=== PATIENT | female | born 1940 | race Caucasian/White ===

== ENCOUNTER → 2016-10-12 | Outpatient (CLI) | payer OTHER | LOC: BMCIMAGING 08:16 | DX: Z12.31 Encounter for screening mammogram for malignant neoplasm of breast (principal) | CPT/HCPCS: G0202 ==

== ENCOUNTER 2017-01-03 10:24 | Inpatient (IN) | payer OTHER ==
--- NOTE | 2017-01-03 10:37 | EDPHY ---
H & P Time Seen by Provider: 01/03/17 10:31 HPI/ROS: CHIEF COMPLAINT: Right ankle injury HISTORY OF PRESENT ILLNESS: Was hiking and stepped wrong injuring her right ankle. Pain only in the ankle and foot without weakness or numbness distally. No other injury. Pain mild to moderate now. Happened around quarter to 9 this morning. Did not sustain head injury or loss of consciousness. She says she can move her toes. REVIEW OF SYSTEMS: Eye: no change in vision ENT: no sore throat Cardiac: no chest pain or syncope Pulmonary: no cough or SOB Abdomen: no vomiting, diarrhea, abdominal pain Musculoskeletal: Right ankle, otherwise negative. Skin: Skin tenting medially but no laceration. There is a medial ankle abrasion. Neuro: no headache Constitutional: no fever : no urinary symptoms She had breakfast cereal and blueberries at 730 but nothing since. A comprehensive 10 point review of systems is otherwise negative aside from elements mentioned in the history of present illness. PAST MEDICAL HISTORY: Diabetes type 1, hypothyroid Social history: Primary care is Greta Moscoso of [facility] General Appearance: Alert and conversant, cooperative. Eyes: No scleral icterus. ENT, Mouth: Normal mucous membranes. Respiratory: Normal respiratory effort, breath sounds equal, lungs are clear to auscultation. Cardiovascular: Regular rate and rhythm. Gastrointestinal: Abdomen is soft and non tender. Neurological: Alert and oriented x3. Normally conversant. Skin: Warm and dry, no rashes. Musculoskeletal: Right ankle swelling and deformity with some medial tenting of the skin but no laceration. She has intact sensation to light touch and can move her toes and normal dorsalis pedis pulse on that foot. No spinal tenderness. Psychiatric: Not agitated. Emergency Department course/MDM: Geno Corley 1133. Discussed with Barney 125Herb recommends admit then OR tonight. Temperature 37.0degrees at 11:09 a.m.. Smoking Status: Never smoked Constitutional: Initial Vital Signs Heart Rate 59 L 01/03/17 10:30 Respiratory Rate 18 01/03/17 10:30 Blood Pressure 114/59 L 01/03/17 10:30 O2 Sat (%) 98 01/03/17 10:30 O2 Delivery Mode [Procedural Non-Rebreather Mask 1st] O2 Delivery Mode [.Immediate Non-Rebreather Mask Pre-Procedure] O2 Delivery Mode Non-Rebreather Mask O2 (L/minute) [Procedural 1st] 15 O2 (L/minute) [.Immediate Pre- 15 Procedure] O2 (L/minute) 15 Allergies/Adverse Reactions: No Known Allergies Allergy (Unverified 01/03/17 12:36) Home Medications: Medication Instructions Recorded Aspirin [Aspirin 81mg (*)] 81 mg PO HS 01/03/17 Cholecalciferol Vit D3 [Vitamin D3 1,000 units PO DAILY 01/03/17 (*)] Herbals/Supplements -Info Only 1 ea PO DAILY 01/03/17 Insulin Glargine [Lantus 100 15 - 16 units SC DAILY 01/03/17 UNITS/ML (*)] Insulin Lispro [Humalog] 2 - 5 unit SQ DAILY 01/03/17 Insulin Lispro [Humalog] 6 - 8 unit SQ BID@12,18 01/03/17 Levothyroxine [Synthroid 150 mcg 150 mcg PO DAILY06 01/03/17 (*)] Lisinopril [Zestril 20 mg (*)] 20 mg PO DAILY 01/03/17 Medical Decision Making - Diagnostics Imaging Results: Imaging Impressions Ankle X-Ray 01/03/17 10:29 Impression: Acute trimalleolar fracture dislocation. Ankle X-Ray 01/03/17 11:02 Impression: Partial reduction of trimalleolar fracture dislocation. Procedures: Procedure: Procedural sedation. Indication: Reduction of the right ankle fracture dislocation A pre-sedation evaluation was completed on the patient at 10:30 a.m. including medical history, allergies and medications, last oral intake, previous experience with sedation, airway assessment, physical examination. Patient is an appropriate candidate for procedural sedation. The risks, benefits, and alternatives of the sedation were discussed with the patient including but not limited to need for airway intervention, cardiovascular complications, ; and consent obtained. The patient is ASA class 2E.Mallampati and 3/3/2 airway assessments were completed. A time out was completed. The patient was sedated with propofol. The patient was monitored with continuous pulse oximetry , boiler tester and end tidal CO2. There were no complications and no significant hypoxemia. I remained at the bedside for the sedation. The total time I spent in the procedural sedation was 11 minutes. At 1250 the patient is alert, awake, and back to neurological and respiratory baseline. Procedure: Dislocation reduction. Indication: Dislocation of the right ankle joint. Risks, benefits, alternatives discussed with the patient including but not limited to fracture, nerve or blood vessel injury, and consent obtained. A timeout was completed. The right ankle was reduced in the usual fashion without complications. Post reduction the patient's neurovascular exam is normal. Post reduction x-ray better alignment but not anatomic. The procedure was performed by myself. Procedure: Splint placement. A three-way long leg posterior Ortho Glass splint was applied. After application of the splint I returned and re-examined the patient. The splint was adequately immobilizing the joint and distal to the splint the patient's circulation and sensation was intact. Consult/Admit Bed Type: [facility] to consult for hospitalist service - Data Points Medications Given: Discontinued Medications Propofol (Diprivan) 60 mg IVP EDNOW ONE Stop: 01/03/17 11:02 Last Admin: 01/03/17 10:52 Dose: 60 mg Departure - Departure Disposition: [facility] Inpatient Acute Clinical Impression: Trimalleolar fracture of ankle, closed Qualifiers: Encounter type: initial encounter Laterality: right Qualified Code(s): S82.851A - Displaced trimalleolar fracture of right lower leg, initial encounter for closed fracture Condition: Good
[2017-01-03] MEDS ORDERED: PROPOFOL 200 MG/20 ML VIAL ONE ×2 (10:45→17:07)
[2017-01-03] MEDS ORDERED: fentaNYL 100 MCG/2 ML INJ ONE (10:45)
[2017-01-03] MEDS ORDERED: PROPOFOL 200 MG/20 ML VIAL IVP ONE (11:01)
[2017-01-03] MEDS ORDERED: HYDROmorphONE/DILAUDID 1 MG/ML SYR IVP PRN ×2 (14:43→18:11)
[2017-01-03] MEDS ORDERED: ONDANSETRON 4 MG/2 ML VIAL IVP PRN (14:43)
[2017-01-03] MEDS ORDERED: D50W 25 GM/50 ML SYR IVP PRN (14:44)
[2017-01-03] MEDS ORDERED: D5W NS 1,000 ML IV SCH (14:45)
--- NOTE | 2017-01-03 15:19 | CPEKG ---
Heart Rate: 62 RR Interval: 968 P-R Interval: 192 QRSD Interval: 76 QT Interval: 476 QTC Interval: 484 P Derby: 21 QRS Derby: 66 T Wave Derby: 68 EKG Severity - NORMAL ECG - EKG Impression: SINUS RHYTHM Electronically Signed By: John Cardona 03-Jan-2017 15:37:39
[2017-01-03 15:43] LABS: ANION GAP 9 mEq/L (8-16); CALCIUM 8.5 mg/dL (8.5-10.4); CARBON DIOXIDE 21 mEq/l (22-31); CHLORIDE 110 mEq/L (97-110); CREATININE 0.9 mg/dL (0.6-1.0); GLOMERULAR FILTRATION RATE > 60; GLUCOSE 84 mg/dL (70-100); POTASSIUM 4.7 mEq/L (3.5-5.2); SODIUM 140 mEq/L (134-144)
[2017-01-03] MEDS ORDERED: LR 1,000 ML IV ONE (15:54)
[2017-01-03] MEDS ORDERED: LIDOCAINE 1% 2 ML INJ ID PRN (15:54)
--- NOTE | 2017-01-03 16:37 | GHP ---
[f rep st] HISTORY AND PHYSICAL DATE OF ADMISSION: 01/03/2017 CHIEF COMPLAINT: Ankle fracture. HISTORY: The patient is a 76-year-old female who was hiking today when she stepped wrong, twisting her ankle, and immediately had a right ankle injury. EMS was called and they had to get her off the trail as she was unable to ambulate. Upon arrival to the emergency room, the ankle was reduced and the plan is to bring her to surgery later today. Prior to this incident today, she was in her [facility] without any acute medical complaints. She denies any chest pain or shortness of b reath. PAST MEDICAL HISTORY: 1. Diabetes type 2. 2. Hypothyroidism. 3. Hypertension. MEDICATIONS: Please see computer record for full detailed list. ALLERGIES: No known drug allergies. SOCIAL HISTORY: No smoking. Occasional wine. Lives with her . REVIEW OF SYSTEMS: Complete review of systems obtained. Review of systems is negative regarding co nstitutional, HEENT, GI, pulmonary, cardiovascular, , hematology, skin, muscular, endocrine and ps ych except for positives and negatives as in HPI. FAMILY HISTORY: Her mom of a stroke at age 91. Her father of heart problems at age 76. PHYSICAL EXAMINATION: GENERAL: Well-developed, well-nourished female, in no acute distress. VITAL SIGNS: Temperature is 36.5, pulse is 60, blood pressure 159/78, saturating 95% on room air. EYES: Normal conjunctivae, pupils reactive to light. ENT: Normal ears and nose. Hearing intact. Norm al teeth. Oropharynx moist. NECK: Trachea midline. No thyromegaly. CHEST: Normal effort. LUNG S: Clear to auscultation bilaterally. CARDIOVASCULAR: Regular rhythm. No murmur. No lower extre mity edema. ABDOMEN: Soft, nontender, no hepatosplenomegaly. SKIN: Warm, dry, intact. No rash. MUSCULOSKELETAL: No cyanosis or clubbing. Strength 5/5 upper and lower extremities. NEUROLOGIC: Cranial nerves intact, normal sensation to light touch. PSYCH: Alert and oriented x3. Normal moo d and affect. Normal judgment. Normal memory. LABORATORY DATA: Sodium 140, potassium 4.7, chloride 110, bicarb 21, BUN 22, creatinine 0.9, glucos e 84. EKG reviewed by me. My personal interpretation is normal sinus rhythm, no ST-T or T-wave changes. ASSESSMENT/PLAN: 1. Trimalleolar fracture. She will be going to surgery tonight. She is medically optimized to pro ceed. 2. Diabetes type 2. She took her Lantus insulin this morning and is now n.p.o. for surgery. Her b lood glucose is currently 70 and she feels a little symptomatic from it. I will put a little D5 in her fluid while she is n.p.o., although this should be discontinued once surgery is over and she is eating. 3. Hypertension. Continue lisinopril. CORE STATUS: Full. ADMISSION STATUS: Will admit to inpatient, anticipate greater than 2 midnights for stabilization. DVT PROPHYLAXIS: She is at moderate risk and we will place her on subcu Lovenox. /[id number]/MODL
[2017-01-03] MEDS ORDERED: MIDAZOLAM 2 MG/2 ML VIAL IVP ONE (16:49)
--- NOTE | 2017-01-03 16:49 | PDANEPAE ---
ANE History of Present Illness orif ankle ANE Past Medical History - Cardiovascular History Hx Hypertension: Yes Hx Arrhythmias: No Hx Chest Pain: No Hx Coronary Artery / Peripheral Vascular Disease: No Hx CHF / Valvular Disease: No Hx Palpitations: No - Pulmonary History Hx COPD: No Hx Asthma/Reactive Airway Disease: No Hx Recent Upper Respiratory Infection: No Hx Oxygen in Use at Home: No Hx Sleep Apnea: No - Neurologic History Hx Cerebrovascular Accident: No Hx Seizures: No Hx Dementia: No - Endocrine History Hx Diabetes: Yes Hypothyroid: No Hyperthyroid: No - Renal History Hx Renal Disorders: No - Liver History Hx Hepatic Disorders: No ANE Review of Systems - Exercise capacity METS (RN): 4 METS ANE Patient History - Allergies Allergies/Adverse Reactions: No Known Allergies Allergy (Unverified 01/03/17 12:36) - Home Medications Home Medications: Aspirin [Aspirin 81mg (*)] 81 mg PO HS 01/03/17 [Last Taken 01/02/17] Cholecalciferol Vit D3 [Vitamin D3 (*)] 1,000 units PO DAILY 01/03/17 [Last Taken 01/03/17 07:00] Herbals/Supplements -Info Only 1 ea PO DAILY 01/03/17 [Last Taken 01/03/17 07:00 ] Insulin Glargine [Lantus 100 UNITS/ML (*)] 15 - 16 units SC DAILY 01/03/17 [ Last Taken 01/03/17 06:00 16 units] Insulin Lispro [Humalog] 2 - 5 unit SQ DAILY 01/03/17 [Last Taken 01/03/17 07: 00 3 units] Insulin Lispro [Humalog] 6 - 8 unit SQ BID@01/03/17 [Last Taken 01/02/17 18:00] Levothyroxine [Synthroid 150 mcg (*)] 150 mcg PO DAILY06 01/03/17 [Last Taken 07:00] Lisinopril [Zestril 20 mg (*)] 20 mg PO DAILY 01/03/17 [Last Taken 01/03/17 07: 00] - NPO status NPO Since - Liquids (Date): 01/03/17 NPO Since - Liquids (Time): 07:00 NPO Since - Solids (Date): 01/03/17 NPO Since - Solids (Time): 07:00 - Anes Hx Anes Hx: no prior problems - Smoking Hx Smoking Status: Never smoked ANE Labs/Vital Signs - Labs Result Diagrams: 01/03/17 15:00 01/03/17 15:00 - Vital Signs Blood Pressure: 152/66 Heart Rate: 64 Respiratory Rate: 18 O2 Sat (%): 95 Height: 157.48 cm Weight: 70.307 kg ANE Physical Exam - Airway Mallampati Score: Class 2 Mouth exam: normal dental/mouth exam - Pulmonary Pulmonary: no respiratory distress - Cardiovascular Cardiovascular: regular rate and rhythym - ASA Status ASA Status: II ANE Anesthesia Plan Anesthesia Plan: GA w LMA
[2017-01-03] MEDS ORDERED: ceFAZolin 2 GM/DEXTROSE 100 ML IV ONE (16:56)
[2017-01-03] MEDS ORDERED: HYDROmorphONE/DILAUDID 1 MG/ML SYR ONE (17:05)
[2017-01-03] MEDS ORDERED: LIDOCAINE 2% 5 ML SDV ONE (17:06)
[2017-01-03] MEDS ORDERED: HYDROmorphONE/DILAUDID 2 MG/ML INJ ONE (17:06)
[2017-01-03] MEDS ORDERED: ROCURONIUM 50 MG/5 ML VIAL ONE (17:06)
[2017-01-03] MEDS ORDERED: ONDANSETRON 4 MG/2 ML VIAL ONE (17:06)
[2017-01-03] MEDS ORDERED: DEXAMETHASONE 4 MG/ML VIAL ONE (17:07)
[2017-01-03] MEDS ORDERED: BUPIVACAINE 0.5% 30 ML SDV ONE (18:00)
[2017-01-03] MEDS ORDERED: NALOXONE HCL 0.4 MG/ML INJ IVP PRN ×2 (18:11→19:24)
[2017-01-03] MEDS ORDERED: ALBUTEROL 3 ML DEYVIAL IH PRN (18:11)
[2017-01-03] MEDS ORDERED: MEPERIDINE 25 MG/ML SYR IVP PRN (18:11)
[2017-01-03] MEDS ORDERED: diphenhydrAMINE 25 MG CAP PO PRN (19:24)
[2017-01-03] MEDS ORDERED: morphINE PCA 30 MG/30 ML PCA IV PRN (19:24)
--- NOTE | 2017-01-03 19:24 | POSTOPPROG ---
Post Op Note Date of Operation: 01/03/17 Surgeon: Tavo Corley Anesthesia: GET(General Endotracheal) Pre-op Diagnosis: R trimalleolar anle fx Post-op Diagnosis: same Procedure: ORIF R trimalleolar ankle fx Inf/Abcess present in the surg proc area at time of surgery?: No EBL: Minimal
[2017-01-03] MEDS ORDERED: D5W 1/2 NS W/ 20 KCl/L 1,000 ML IV SCH (19:30)
[2017-01-03] MEDS: INSULIN REGULAR HUMAN 100 UNIT/ML SC SCH ×2 (20:31→21:24)
[2017-01-04] MEDS: ceFAZolin 2 GM/DEXTROSE 100 ML IV SCH ×2 (01:20→09:26)
[2017-01-04] MEDS: oxyCODONE IR 5 MG TAB PO PRN ×6 (01:34→21:29)
[2017-01-04] MEDS: LEVOTHYROXINE 150 MCG TAB PO SCH (04:51)
[2017-01-04 05:12] LABS: % IMMATURE GRANULYOCYTES 0.3 % (0.0-1.1); ABSOLUTE IMMATURE GRANULOCYTES 0.02 10^3/uL (0.00-0.10); ADD DIFF? NO; ADD MORPH? NO; ADD SCAN? NO; ATYPICAL LYMPHOCYTE FLAG 0 (0-99); FRAGMENT RBC FLAG 0 (0-99); HEMATOCRIT 31.9 % (38.0-47.0); HEMOGLOBIN 10.3 g/dL (12.6-16.3); LEFT SHIFT FLG 0 (0-99); LIPEMIA HEMOLYSIS FLAG 80 (0-99); MEAN CELL HEMOGLOBIN CONCENTR. 32.3 g/dL (32.4-36.7); MEAN CELL VOLUME 83.7 fL (81.5-99.8); MEAN PLATELET VOLUME 9.1 fL (8.7-11.7); PLATELET CLUMPS FLAG 0 (0-99); PLATELET COUNT 188 10^3/uL (150-400); RED BLOOD CELL COUNT 3.81 10^6/uL (4.18-5.33); RED CELL DISTRIBUTION WIDTH 13.6 % (11.5-15.2)
[2017-01-04 05:33] LABS: ANION GAP 10 mEq/L (8-16); CALCIUM 8.6 mg/dL (8.5-10.4); CARBON DIOXIDE 20 mEq/l (22-31); CHLORIDE 106 mEq/L (97-110); CREATININE 0.9 mg/dL (0.6-1.0); GLOMERULAR FILTRATION RATE > 60; GLUCOSE 310 mg/dL (70-100); POTASSIUM 5.1 mEq/L (3.5-5.2); SODIUM 136 mEq/L (134-144)
--- NOTE | 2017-01-04 06:06 | SOAPPROG ---
SOAP Progress Note Assessment/Plan: Assessment: S/P ORIF trimalleolar ankle fx Pain tolerable Judy diet + U/O Splint intact. No D/C Toes with good cap refill + sensation/able fo flex/ext toes Plan: OOB/PT D/C home 01/04/17 06:04 Objective: Vital Signs Temp Pulse Resp BP Pulse Ox 36.8 C 83 16 129/59 H 96 01/04/17 05:02 01/04/17 05:02 01/04/17 05:02 01/04/17 05:02 01/04/17 05:02 Laboratory Results 01/04/17 04:45 01/04/17 04:45 01/03/17 01/04/17 01/05/17 05:59 05:59 05:59 Intake Total 2463 Output Total 1300 Balance 1163 ICD10 Worksheet Patient Problems: Problems Problem Status Onset Trimalleolar fracture of ankle, closed Acute
--- NOTE | 2017-01-04 06:08 | PDIAF ---
- Diagnosis Code Status: Full Code - Medication Management Discharge Medications: Medications to Continue on Transfer Aspirin [Aspirin 81mg (*)] 81 mg PO HS 01/03/17 [Last Taken 01/02/17] Cholecalciferol Vit D3 [Vitamin D3 (*)] 1,000 units PO DAILY 01/03/17 [Last Taken 01/03/17 07:00] Herbals/Supplements -Info Only 1 ea PO DAILY 01/03/17 [Last Taken 01/03/17 07:00 ] Insulin Glargine [Lantus 100 UNITS/ML (*)] 15 - 16 units SC DAILY 01/03/17 [ Last Taken 01/03/17 06:00 16 units] Insulin Lispro [Humalog] 2 - 5 unit SQ DAILY 01/03/17 [Last Taken 01/03/17 07: 00 3 units] Insulin Lispro [Humalog] 6 - 8 unit SQ BID@12,18 01/03/17 [Last Taken 01/02/17 18:00] Levothyroxine [Synthroid 150 mcg (*)] 150 mcg PO DAILY06 01/03/17 [Last Taken 07:00] Lisinopril [Zestril 20 mg (*)] 20 mg PO DAILY 01/03/17 [Last Taken 01/03/17 07: 00] Discharge Medications: Refer to the Discharge Home Medication list for PRN reason. - Orders Diet Recommendation: no restrictions on diet Wound Care Instructions: Keep splint clean, dry, intact Activity/Weight Bearing Restrictions: Non wt. bearing R leg - Follow Up Care Current Providers and Referrals: Greta Moscoso MD [Primary Care Provider] - As per Instructions
--- NOTE | 2017-01-04 07:30 | GCON ---
[f rep st] CONSULTATION DATE OF CONSULTATION: 01/03/2017 REASON FOR CONSULTATION: Right ankle injury. HISTORY OF PRESENT ILLNESS: The patient is a 76-year-old, community ambulator, who sustained a fall while hiking. She noted gross deformity in her ankle and was brought to the emergency room. PHYSICAL EXAMINATION: There was noted to be instability and some valgus malalignment of her ankle. There was some pressure along the medial skin without any break in the skin integrity. There was concern over "threatened" integrity of the skin. Distal neurovascular exam was grossly intact. IMAGING: AP and lateral radiographs of the ankle showed evidence of a complex trimalleolar ankle fracture. ASSESSMENT: Right trimalleolar ankle fracture. PLAN: Based on the displaced nature of her injury it was recommended that operative treatment consisting of open reduction, internal fixation be pursued. As there was some concern it was recommended this be pursued on a more "emergent" basis rather than delaying this through an outpatient operation. /[id number]/MODL MTDD
--- NOTE | 2017-01-04 07:40 | GOP ---
[f rep st] OPERATIVE REPORT DATE OF OPERATION: 01/03/2017 SURGEON: Tavo Corley MD ANESTHESIA: General. PREOPERATIVE DIAGNOSIS: Right trimalleolar ankle fracture. POSTOPERATIVE DIAGNOSIS: Right trimalleolar ankle fracture. PROCEDURE PERFORMED: 1. Open reduction, internal fixation right trimalleolar ankle fracture with fixation of the posteri or malleolar fragment. 2. Intraoperative use of fluoroscopy. FINDINGS: ESTIMATED BLOOD LOSS: Minimal. INDICATIONS: This is a 76-year-old who had a fall on the day of surgery resulting in a displaced ri ght trimalleolar ankle fracture. Based on the displaced and unstable nature of the injury, it was r ecommended that operative treatment consisting of open reduction and internal fixation be pursued. The patient acknowledged and understood the potential risks of the operation including but not limit ed to bleeding, infection, neurovascular damage, loss of limb function, malunion, nonunion, need for hardware removal, development of arthritis, pain or functional limitations despite operative treatm ent, and anesthetic risks. She acknowledged she understood the potential risks, planned procedure, and postoperative plan well and had all questions answered prior to surgery. She gave her consent f or the operative procedure. DESCRIPTION OF PROCEDURE: The patient was brought in the operating room after IV antibiotics were a dministered. She was placed in the supine position where general anesthetic was administered. A to urniquet was placed on the right thigh, and the patient was transferred to a left lateral decubitus position on the operating room table with beanbag support, axillary roll, and padding of all bony pr ominences. The right lower extremity was prepped and draped in a standard sterile fashion. After m arking the incision and Ottoniel wrap exsanguination, the tourniquet was inflated to 250. A longitudinal incision was made posterior to the distal fibula. Skin and subcutaneous tissue were sharply incise d. Sharp dissection was carried anterior to the peroneal tendons. The lateral border of the fibula was exposed. The posterior aspect of the fibula was reflected from soft tissue to allow for plate placement. Based on the nature of the fracture pattern, a posterior "antiglide" plating was perform ed. A 6-hole 1/3 tubular plate was malleted flat at its distal aspect. The plate was placed along the posterior border of the fibula. Just proximal to the plane of the fracture, a 3.5 mm bicortical screw was placed in a posterior to anterior direction through the plate. As the screw was tightene d, the fracture alignment was fine tuned into an anatomic position with a dental pick. With the fra cture held in an anatomically reduced position, a 2.7 mm cortical screw was placed in lag fashion th rough the plate. An additional 3.5 mm bicortical screw was placed in the most proximal end of the p late. There was noted to be an anterior fibular fragment adjacent to the syndesmosis. Stablization of this was felt to be necessary for syndesmotic reduction and stability. Dissection was then cast ied along the anterior aspect of the fibula. A 6-hole 2.0 mm DC plate was contoured to fit the ante rior fibula. Just proximal to the fracture plane, a 2.4 mm cortical screw was placed in an anterior to posterior direction through the plate. Distally a 2.4 mm cortical screw was placed in lag fashi on across the fracture through the plate with an additional 2.4 mm bicortical screw in the most prox imal hole in the plate. Fluoroscopic views confirmed anatomic reduction and stable hardware placeme nt. Attention was then directed toward the posterior malleolus. Through the same incision, the interval between the peroneal and FHL tendons was utilized for exposure of the posterior border of the tibia . The posterior malleolar fragment was identified. Utilizing an elevator, the fracture was pushed into an anatomically reduced position provisionally pinned with a Destin wire. Reduction was con firmed fluoroscopically. A 6-hole 2.4 mm DC plate was contoured to fit the posterior tibia. Just p roximal to the fracture plane, a 2.7 mm cortical screw was placed in a posterior to anterior directi on through the plate. A 2.7 mm cortical screw was placed in lag fashion through one of the distal h oles in the plate across the fracture with a supplemental 2.7 mm unicortical screw in the most proxi mal hole in the plate. Fluoroscopic views confirmed anatomic reduction and favorable hardware place ment. Deep tissue was closed with 2-0 Vicryl suture in an interrupted fashion. Subcutaneous tissue was closed with 3-0 Vicryl suture in an interrupted fashion. Skin was closed with 3-0 nylon interr upted vertical mattress sutures. The beanbag was deflated and the patient was carefully transferred to a supine position. Attention was then directed toward medial malleolar fixation. An oblique incision was made along th e distal aspect of the medial malleolus. Skin and subcutaneous tissue were sharply incised. Care w as taken to avoid damage to the saphenous vein. Sharp dissection was carried down to the medial mal leolus. The fracture was gapped open to allow for visualization of the joint. There was some scuff ing along the medial talus without any definitive focal cartilage loss. Using a 2-point reduction c lamp, the fracture was anatomically reduced. Two 2.7 mm cortical screws were placed in lag fashion in a distal to proximal direction across the fracture. Fluoroscopic views confirmed anatomic reduct ion and favorable hardware placement. Subcutaneous tissue was then closed with 3-0 Vicryl suture in interrupted fashion. Skin was closed with 3-0 nylon interrupted vertical mattress sutures. The wounds were dressed with sterile Adaptic, 4 x 4, and Webril and the leg was placed in a below-kn ee splint. The patient tolerated the procedure well and was taken to the recovery room, extubated, in stable condition postoperatively. All sponge, needle, and instrument counts were reported to be correct. DRAINS: None. COMPLICATIONS: None. PLAN: The patient will be admitted for overnight observation. She will be nonweightbearing on her operative extremity. Copy requested to: Patient Chart /[id number]/MODL
[2017-01-04] MEDS ORDERED: INSULIN GLARGINE 100 UNITS/ML SYRINGE SC SCH (09:00)
[2017-01-04] MEDS ORDERED: INSULIN LISPRO 100 UNIT/ML SC SCH ×2 (09:00→12:00)
[2017-01-04] MEDS: ENOXAPARIN 40 MG/0.4 ML SYR SC SCH (09:26)
[2017-01-04] MEDS: LISINOPRIL 20 MG TAB PO SCH (09:29)
[2017-01-04] MEDS: CHOLECALCIFEROL VIT D3 1,000 UNITS TAB PO SCH (09:29)
[2017-01-04] MEDS: INSULIN REGULAR HUMAN 100 UNIT/ML SC SCH (09:30)
--- NOTE | 2017-01-04 10:48 | HOSPPROG ---
Hospitalist Progress Note Assessment/Plan: Trimalleolar fracture - s/p ORIF POD #1. Doing well, but needs ongoing hospitalization for acute pain control and acute PT/OT. DM, ?ROWDY - sensitive to insulin, h/o bg lability. -cont lantus (received this am and didn't eat) -reduce SSI and change to humalog Hypertension - normotensive, cont outpt meds DVT PPLX - Lovenox Full code Dispo - cont inpt for ongoing PT/OT needs Subjective: Pt feels a little light headed after receiving oxycodone. Also took full dose lantus this am and hasn't eaten. Pain controlled. Objective: Vital Signs Temp Pulse Resp BP Pulse Ox 36.7 C 72 18 123/65 H 97 01/04/17 07:44 01/04/17 07:44 01/04/17 07:44 01/04/17 09:29 01/04/17 07:44 Laboratory Results 01/04/17 04:45 01/04/17 04:45 01/03/17 01/04/17 01/05/17 05:59 05:59 05:59 Intake Total 2463 Output Total 1300 Balance 1163 - Physical Exam Constitutional: no apparent distress Eyes: PERRL Ears, Nose, Mouth, Throat: moist mucous membranes Cardiovascular: regular rate and rhythym Respiratory: no respiratory distress, clear to auscultation Gastrointestinal: normoactive bowel sounds, soft, non-tender abdomen Skin: warm Musculoskeletal: full muscle strength Neurologic: AAOx3 Psychiatric: interacting appropriately ICD10 Worksheet Patient Problems: Problems Problem Status Onset Trimalleolar fracture of ankle, closed Acute
[2017-01-04] MEDS ORDERED: D10W 250 ML PRN HYPOGLYCEMIA IV (11:00)
[2017-01-04] MEDS: INSULIN LISPRO 100 UNIT/ML SC SCH ×2 (11:43→19:00)
[2017-01-04] MEDS: ACETAMINOPHEN 325 MG TAB PO PRN ×2 (12:39→19:50)
[2017-01-05] MEDS: oxyCODONE IR 5 MG TAB PO PRN ×3 (02:18→12:38)
[2017-01-05 04:48] LABS: HEMATOCRIT 27.7 % (38.0-47.0); HEMOGLOBIN 9.2 g/dL (12.6-16.3); MEAN CELL HEMOGLOBIN CONCENTR. 33.2 g/dL (32.4-36.7); MEAN CELL VOLUME 81.2 fL (81.5-99.8); RED BLOOD CELL COUNT 3.41 10^6/uL (4.18-5.33); RED CELL DISTRIBUTION WIDTH 13.5 % (11.5-15.2)
[2017-01-05] MEDS: LEVOTHYROXINE 150 MCG TAB PO SCH (05:53)
[2017-01-05 07:29] VITALS: BP 153/76; PULSE 84; RESP 15; TEMP 98.5; O2SAT 93
[2017-01-05] MEDS ORDERED: INSULIN LISPRO 100 UNIT/ML SC ONE (07:53)
[2017-01-05] MEDS ORDERED: INSULIN GLARGINE 100 UNITS/ML SYRINGE SC SCH (07:55)
[2017-01-05] MEDS: ACETAMINOPHEN 325 MG TAB PO PRN (08:17)
[2017-01-05] MEDS: ENOXAPARIN 40 MG/0.4 ML SYR SC SCH (08:17)
[2017-01-05] MEDS: INSULIN LISPRO 100 UNIT/ML SC SCH ×2 (08:18→15:14)
[2017-01-05] MEDS: CHOLECALCIFEROL VIT D3 1,000 UNITS TAB PO SCH (08:18)
[2017-01-05] MEDS: LISINOPRIL 20 MG TAB PO SCH (08:18)
--- NOTE | 2017-01-05 09:43 | PDIAF ---
- Diagnosis Diagnosis: Trimalleolar fracture s/p ORIF Code Status: Full Code - Medication Management Discharge Medications: Medications to Continue on Transfer Aspirin [Aspirin 81mg (*)] 81 mg PO HS 01/03/17 [Last Taken 01/02/17] Cholecalciferol Vit D3 [Vitamin D3 (*)] 1,000 units PO DAILY 01/03/17 [Last Taken 01/03/17 07:00] Herbals/Supplements -Info Only 1 ea PO DAILY 01/03/17 [Last Taken 01/03/17 07:00 ] Insulin Glargine [Lantus 100 UNITS/ML (*)] 15 - 16 units SC DAILY 01/03/17 [ Last Taken 01/03/17 06:00 16 units] Insulin Lispro [Humalog] 2 - 5 unit SQ DAILY 01/03/17 [Last Taken 01/03/17 07: 00 3 units] Insulin Lispro [Humalog] 6 - 8 unit SQ BID@12,18 01/03/17 [Last Taken 01/02/17 18:00] Levothyroxine [Synthroid 150 mcg (*)] 150 mcg PO DAILY06 01/03/17 [Last Taken 07:00] Lisinopril [Zestril 20 mg (*)] 20 mg PO DAILY 01/03/17 [Last Taken 01/03/17 07: 00] oxyCODONE IR [Oxycodone Ir (*)] 5 - 10 mg PO Q4 PRN #30 tab 01/05/17 [Last Taken Unknown] Discharge Medications: Refer to the Discharge Home Medication list for PRN reason. - Orders Services needed: Home Care, Registered Nurse, Physical Therapy, Occupational Therapy Home Care Face to Face: I certify that this patient was under my care and that I had the required [id number] encounter meeting the encounter requirements on the discharge day. My findings support the fact that the patient is homebound as defined in CMS Chapter 7 Medicare Benefits Manual 30.1.1, The condition of the patient is such that there exists a normal inability to leave home and consequently, leaving home would require a considerable and taxing effort. Diet Recommendation: no restrictions on diet Wound Care Instructions: Keep splint clean, dry, intact Activity/Weight Bearing Restrictions: Non wt. bearing R leg - Follow Up Care Current Providers and Referrals: Greta Moscoso MD [Primary Care Provider] - As per Instructions Tavo Corley MD [Medical Doctor] -
--- NOTE | 2017-01-05 17:45 | GDS ---
[f rep st] DISCHARGE SUMMARY DISCHARGE DIAGNOSES: 1. Trimalleolar fracture, status post ORIF. 2. Diabetes. 3. Hypertension. HISTORY: The patient is a 76-year-old female, who twisted her ankle while hiking and sustained a tr imalleolar fracture. She was admitted to the hospital and underwent ORIF with Dr. Corley. She was cleared by him to discharge home. She did have some postoperative pain control issues, but that is now well controlled. She has ambulated well with PT/OT and cleared to go home. Blood glucose has been very elevated today. She missed some insulin dosing in the perioperative per iod, which is the likely cause. She feels very comfortable managing her insulin injections at home to get this back under control. DISCHARGE MEDICATIONS: Please see computer record for full detailed list. New medications: Oxycodone 5-10 mg every 4 hours as needed. ADDITIONAL DISCHARGE INSTRUCTIONS: 1. Nonweightbearing on the right leg. 2. Keep splint clean, dry, and intact. 3. Follow up with Dr. Corley on Monday, January 11. 4. Ice and elevation. 5. Home Health PT/OT arranged. Greater than 30 minutes' time was spent arranging this discharge. Patient was seen and examined by me on the day of discharge. /[id number]/MODL
== END 2017-01-05 13:43 | disposition home or self-care (01) | DRG 494 ==
LOC: EDUNIT# → F3N 14:09
PROVIDERS: ADMIT Orthopaedic Surgery Foot and Ankle Surgery; ATTEND Orthopaedic Surgery Foot and Ankle Surgery
PROC: 0QSJ04Z Reposition Right Fibula with Internal Fixation Device, Open Approach (ICD-10-PCS; principal; 2017-01-03 16:15)
PROC: 0QSG04Z Reposition Right Tibia with Internal Fixation Device, Open Approach (ICD-10-PCS; principal; 2017-01-03 16:15)
DX: S82.851A Displaced trimalleolar fracture of right lower leg, initial encounter for closed fracture (principal); Y93.01 Activity, walking, marching and hiking; Y92.828 Other wilderness area as the place of occurrence of the external cause; W01.0XXA Fall on same level from slipping, tripping and stumbling without subsequent striking against object, initial encounter; E11.9 Type 2 diabetes mellitus without complications; E03.9 Hypothyroidism, unspecified; I10 Essential (primary) hypertension; Z79.4 Long term (current) use of insulin
CPT/HCPCS: 97161-GP; 97166-GO; 97535-GO; C1713; C1769; G8978-GP-CJ; G8979-GP-CJ; G8980-GP-CJ; G8987-GO-CJ; G8988-GO-CI; J0690; J1100; J1170; J1650; J1815; J2250; J2405; J2704; J3010

== ENCOUNTER → 2017-11-24 | Outpatient (CLI) | payer OTHER | LOC: BMCIMAGING 11:49 | PROVIDERS: ATTEND Internal Medicine | DX: Z12.31 Encounter for screening mammogram for malignant neoplasm of breast (principal) ==

== ENCOUNTER 2018-02-17 11:14 | Emergency (ER) | payer OTHER ==
[2018-02-17] MEDS ORDERED: MECLIZINE HCL 25 MG TAB PO ONE (11:41)
[2018-02-17 11:46] LABS: PLATELET COUNT 192 10^3/uL (150-400)
--- NOTE | 2018-02-17 13:31 | EDPHY ---
H & P Time Seen by Provider: 02/17/18 11:28 HPI/ROS: CHIEF COMPLAINT: Dizziness HISTORY OF PRESENT ILLNESS: Patient is a 77-year-old female with history of diabetes here with her daughter with concern for vertiginous dizziness that started this morning. She states she woke up this morning felt slight sensation of the room spinning but was able to ambulate. She then went to her Pilates class of the during Pilates class her vertigo got much worse. She has she was unable to walk but denies any numbness, weakness, vision changes, trouble with coordination. She has no history of CVA takes no blood thinners. There was no head injury. REVIEW OF SYSTEMS: Constitutional: No fever, no chills. Eyes: No discharge. ENT: No sore throat. Cardiovascular: No chest pain, no palpitations. Respiratory: No cough, no shortness of breath. Gastrointestinal: No abdominal pain, no vomiting. Genitourinary: No hematuria. Musculoskeletal: No back pain. Skin: No rashes. Neurological: No headache. Smoking Status: Never smoked Physical Exam: General Appearance: Alert and no distress. Eyes: Pupils equal and round no injection. No nystagmus Respiratory: Chest is nontender, lungs are clear to auscultation. Cardiac: regular rate and rhythm. Gastrointestinal: Abdomen is soft and nontender, no masses, bowel sounds normal. Musculoskeletal: Neck is supple and nontender. Extremities have full range of motion and are nontender. Skin: No rashes or lesions. Neuro: Cranial nerves grossly intact. Normal [id number]. Visual barragan intact. No nystagmus. Normal [id number]-oq-jtle testing. Vertigo worsened by movement of head laterally Constitutional: Initial Vital Signs Temperature (C) 36.9 C 02/17/18 11:22 Heart Rate 81 02/17/18 11:22 Respiratory Rate 18 02/17/18 11:22 Blood Pressure 171/84 H 02/17/18 11:22 O2 Sat (%) 98 02/17/18 11:22 O2 Delivery Mode Room Air Allergies/Adverse Reactions: No Known Allergies Allergy (Unverified 01/03/17 12:36) Home Medications: Medication Instructions Recorded Aspirin [Aspirin 81mg (*)] 81 mg PO HS 01/03/17 Cholecalciferol Vit D3 [Vitamin D3 1,000 units PO DAILY 01/03/17 (*)] Herbals/Supplements -Info Only 1 ea PO DAILY 01/03/17 Insulin Glargine [Lantus 100 15 - 16 units SC DAILY 01/03/17 UNITS/ML (*)] Insulin Lispro [Humalog] 2 - 5 unit SQ DAILY 01/03/17 Insulin Lispro [Humalog] 6 - 8 unit SQ BID@12,18 01/03/17 Levothyroxine [Synthroid 150 mcg 150 mcg PO DAILY06 01/03/17 (*)] Lisinopril [Zestril 20 mg (*)] 20 mg PO DAILY 01/03/17 oxyCODONE IR [Oxycodone Ir (*)] 5 - 10 mg PO Q4 PRN #30 tab 01/05/17 Meclizine HCl [Meclizine HCl 25 mg 25 mg PO TID #21 tab 02/17/18 (RX,OTC)] Medical Decision Making - Diagnostics Imaging Results: Imaging Impressions Brain MRI 02/17/18 11:41 Impression: 1. Mild age-related cerebral atrophy. 2. Mild to moderate nonspecific hyperintense T2/FLAIR signal abnormalities in the white matter of bilateral cerebral hemispheres. Differential diagnosis includes microvascular ischemic disease, post-infectious/post-inflammatory sequela, atypical demyelinating disease, or migraine-related sequela. 3. No acute infarct, hemorrhage, hydrocephalus, mass effect, or herniation. If symptoms worsen, additional imaging may be necessary. Findings discussed with Shahab Rod PAC at 13:18 hour, 02/17/2018. ED Course/Re-evaluation: 77-year-old female here with vertigo and trouble walking. MRI reveals no evidence of posterior infarct. She does feel improved after meclizine and is able to ambulate in the ER. EKG revealed no evidence of ischemia. Labs reveal no acute anemia or leukocytosis. She has no focal neurologic deficits on exam. The she was referred to [facility] for further treatment evaluation. - Data Points Laboratory Results: Laboratory Results 02/17/18 11:30 02/17/18 11:30 02/17/18 02/17/18 11:30 11:30 WBC 4.25 10^3/uL 10^3/uL (3.80-9.50) RBC 4.19 10^6/uL 10^6/uL (4.18-5.33) Hgb 12.5 g/dL L g/dL (12.6-16.3) Hct 36.0 % L % (38.0-47.0) MCV 85.9 fL fL (81.5-99.8) MCH 29.8 pg pg (27.9-34.1) MCHC 34.7 g/dL g/dL (32.4-36.7) RDW 12.5 % % (11.5-15.2) Plt Count 192 10^3/uL 10^3/uL (150-400) MPV 9.2 fL fL (8.7-11.7) Neut % (Auto) 50.0 % % (39.3-74.2) Lymph % (Auto) 36.2 % % (15.0-45.0) [place] % (Auto) 11.3 % % (4.5-13.0) Eos % (Auto) 1.6 % % (0.6-7.6) Baso % (Auto) 0.7 % % (0.3-1.7) Nucleat RBC Rel Count 0.0 % % (0.0-0.2) Absolute Neuts (auto) 2.12 10^3/uL 10^3/uL (1.70-6.50) Absolute Lymphs (auto) 1.54 10^3/uL 10^3/uL (1.00-3.00) Absolute Monos (auto) 0.48 10^3/uL 10^3/uL (0.30-0.80) Absolute Eos (auto) 0.07 10^3/uL 10^3/uL (0.03-0.40) Absolute Basos (auto) 0.03 10^3/uL 10^3/uL (0.02-0.10) Absolute Nucleated RBC 0.00 10^3/uL 10^3/uL (0-0.01) Immature Gran % 0.2 % % (0.0-1.1) Immature Gran # 0.01 10^3/uL 10^3/uL (0.00-0.10) Sodium 135 mEq/L mEq/L (135-145) Potassium 4.2 mEq/L mEq/L (3.3-5.0) Chloride 103 mEq/L mEq/L (97-110) Carbon Dioxide 24 mEq/l mEq/l (22-31) Anion Gap 8 mEq/L mEq/L (8-16) BUN 20 mg/dL mg/dL (7-23) Creatinine 0.9 mg/dL mg/dL (0.6-1.0) Estimated GFR > 60 Glucose 182 mg/dL H mg/dL (70-100) Calcium 9.1 mg/dL mg/dL (8.5-10.4) Medications Given: Discontinued Medications Meclizine HCl (Meclizine Hcl) 25 mg PO ONCE ONE Stop: 02/17/18 11:42 Last Admin: 02/17/18 11:51 Dose: 25 mg Ondansetron HCl (Zofran Odt) 4 mg PO EDNOW ONE Stop: 02/17/18 14:01 Last Admin: 02/17/18 14:14 Dose: Not Given Departure - Departure Disposition: Home, Routine, Self-Care Clinical Impression: Peripheral vertigo Condition: Good Instructions: Meclizine (By mouth), Benign Paroxysmal Positional Vertigo (ED) Additional Instructions: Please follow up with [facility] in the next week. Call them to make an appointment. Watch videos on the Nini maneuver and read the instructions as detailed here for vertigo. May take meclizine 25 mg 3 times a day as needed for dizziness. Return to the ER for any new or worsening symptoms. Referrals: Patient,NotPresent [Unknown] - As per Instructions Prescriptions: Meclizine HCl [Meclizine HCl 25 mg (RX,OTC)] 25 mg PO TID #21 tab
[2018-02-17] MEDS ORDERED: ONDANSETRON DISINTEGRATING 4 MG TAB PO ONE (14:00)
--- NOTE | 2018-02-17 15:00 | CPEKG ---
Test Reason : OPEN Blood Pressure : / mmHG Vent. Rate : 067 BPM Atrial Rate : 067 BPM P-R Int : 197 ms QRS Dur : 070 ms QT Int : 432 ms P-R-T Axes : 030 055 068 degrees QTc Int : 456 ms Sinus rhythm Confirmed by Baljit Whaley ([id number]) on 02/17/2018 3:00:04 PM Referred By: Confirmed By:Baljit Whaley
[2018-02-17 17:14] VITALS: BP 118/83
== END 2018-02-17 14:14 | disposition home or self-care (01) ==
LOC: EDUNIT#
DX: H81.399 Other peripheral vertigo, unspecified ear (principal)

== ENCOUNTER → 2018-11-26 | Outpatient (CLI) | payer OTHER | LOC: BMCIMAGING 08:30 ==